=== PATIENT | female | born 1955 | race Caucasian/White ===

== ENCOUNTER → 2016-11-06 | Outpatient (CLI) | payer OTHER ==
[~2016-11-06] MED LIST: GADOBUTROL 7.5 MMOL/7.5 ML VIAL ONE
== END | disposition home or self-care (01) ==
LOC: EDSTATUS 09:30 → CFH 09:33
PROVIDERS: ATTEND Urology
DX: N81.4 Uterovaginal prolapse, unspecified (principal); N39.46 Mixed incontinence
CPT/HCPCS: 72197; A9585